=== PATIENT | male | born 1940 | race Caucasian/White ===

== ENCOUNTER 2018-08-02 15:38 | Observation (INO) | payer OTHER, BC ==
[2018-08-02] MEDS ORDERED: NS 500 ML IV ONE (15:46)
--- NOTE | 2018-08-02 15:49 | EDPHY ---
H & P Time Seen by Provider: 08/02/18 15:40 HPI/ROS: CHIEF COMPLAINT: Syncope and fainting HISTORY OF PRESENT ILLNESS: History of hypertension, he has had an intermittent what he calls "left rib pain" on the left side of his chest over the last week since Saturday. Today was at [facility] and after his 2nd beer suddenly felt warm and lightheaded and passed out, he was standing at the time. He did not injure himself. Family got him back up and he almost fainted again was brought in by EMS. Of note his blood pressure was low in transport with a lowest reading manual of 50 systolic with a heart rate in the 60s. On arrival the patient says he feels back to normal. He denies chest pain or shortness of breath now. Denies vomiting or diarrhea or headache. 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 PAST MEDICAL HISTORY: Hypertension Social [place] [facility] [place] Appearance: Alert and conversant, cooperative. Eyes:left eye abnormal which is baseline ENT, Mouth: Normal mucous membranes. Respiratory: Normal respiratory effort, breath sounds equal, lungs are clear to auscultation. Cardiovascular: Regular rate and rhythm. No murmur. Gastrointestinal: Abdomen is soft and non tender. Neurological: Alert, face symmetric, normal motor and sensory in extremities. Skin: Warm and dry, no rashes. Musculoskeletal: No peripheral edema. No calf tenderness. Psychiatric: Not agitated. Emergency Department course/MDM: 78-year-old man presents with syncope and pre-hospital blood pressure of 50 systolic. Plan for EKG and troponin, D-dimer, IV fluids, admission for monitoring and evaluation. 1609: BUN and creatinine elevated, will hydrate with IV normal saline in the ED. Possible component of dehydration. Discussed with madison at 4:30 p.m.. Constitutional: Initial Vital Signs Temperature (C) 36.6 C 08/02/18 15:39 Heart Rate 78 08/02/18 15:39 Respiratory Rate 16 08/02/18 15:39 Blood Pressure 130/61 H 08/02/18 15:39 O2 Sat (%) 97 08/02/18 15:39 O2 Delivery Mode Room Air Allergies/Adverse Reactions: No Known Allergies Allergy (Unverified 08/02/18 15:41) Home Medications: Medication Instructions Recorded Losartan/Hctz 50/12.5 [Hyzaar 1 tab PO DAILY 08/02/18 50/12.5MG (*)] Medical Decision Making - Diagnostics EKG Interpretation: 12-lead EKG interpreted by me; official reading is in computer system. My interpretation is sinus rhythm rate 72 with borderline prolonged QT otherwise normal. Imaging Results: Imaging Impressions Chest X-Ray 08/02/18 15:47 Impression: 1. Clear lungs. No acute process. 2. Minimal cardiomegaly. No failure. Imaging: I viewed and interpreted images myself Differential Diagnosis: Differential diagnosis considered for syncope including but not limited to vasovagal syncope, arrhythmia, dehydration, and blood loss. Consult/Admit Bed Type: [place] 1700 - Data Points Laboratory Results: Laboratory Results 08/02/18 15:52 08/02/18 15:52 08/02/18 08/02/18 08/02/18 15:52 15:52 15:52 WBC 7.78 10^3/uL 10^3/uL (3.80-9.50) RBC 4.27 10^6/uL L 10^6/uL (4.40-6.38) Hgb 14.1 g/dL g/dL (13.7-17.5) Hct 42.1 % % (40.0-51.0) MCV 98.6 fL fL (81.5-99.8) MCH 33.0 pg pg (27.9-34.1) MCHC 33.5 g/dL g/dL (32.4-36.7) RDW 13.4 % % (11.5-15.2) Plt Count 208 10^3/uL 10^3/uL (150-400) MPV 9.0 fL fL (8.7-11.7) Neut % (Auto) 55.0 % % (39.3-74.2) Lymph % (Auto) 33.3 % % (15.0-45.0) [place] % (Auto) 9.4 % % (4.5-13.0) Eos % (Auto) 1.3 % % (0.6-7.6) Baso % (Auto) 0.5 % % (0.3-1.7) Nucleat RBC Rel Count 0.0 % % (0.0-0.2) Absolute Neuts (auto) 4.28 10^3/uL 10^3/uL (1.70-6.50) Absolute Lymphs (auto) 2.59 10^3/uL 10^3/uL (1.00-3.00) Absolute Monos (auto) 0.73 10^3/uL 10^3/uL (0.30-0.80) Absolute Eos (auto) 0.10 10^3/uL 10^3/uL (0.03-0.40) Absolute Basos (auto) 0.04 10^3/uL 10^3/uL (0.02-0.10) Absolute Nucleated RBC 0.00 10^3/uL 10^3/uL (0-0.01) Immature Gran % 0.5 % % (0.0-1.1) Immature Gran # 0.04 10^3/uL 10^3/uL (0.00-0.10) D-Dimer 0.50 ug/mLFEU ug/mLFEU (0.00-0.50) Sodium 140 mEq/L mEq/L (135-145) Potassium 3.9 mEq/L mEq/L (3.5-5.2) Chloride 108 mEq/L mEq/L (97-110) Carbon Dioxide 18 mEq/l L mEq/l (22-31) Anion Gap 14 mEq/L mEq/L (6-14) BUN 33 mg/dL H mg/dL (7-23) Creatinine 1.5 mg/dL H mg/dL (0.7-1.3) Estimated GFR 45 Glucose 105 mg/dL H mg/dL (70-100) Calcium 8.9 mg/dL mg/dL (8.5-10.4) POC Troponin I 08/02/18 15:51 WBC RBC Hgb Hct MCV MCH MCHC RDW Plt Count MPV Neut % (Auto) Lymph % (Auto) [place] % (Auto) Eos % (Auto) Baso % (Auto) Nucleat RBC Rel Count Absolute Neuts (auto) Absolute Lymphs (auto) Absolute Monos (auto) Absolute Eos (auto) Absolute Basos (auto) Absolute Nucleated RBC Immature Gran % Immature Gran # D-Dimer Sodium Potassium Chloride Carbon Dioxide Anion Gap BUN Creatinine Estimated GFR Glucose Calcium POC Troponin I 0.00 ng/mL ng/mL (0.00-0.08) Medications Given: Discontinued Medications Sodium Chloride (Ns) 500 mls @ 0 mls/hr IV EDNOW ONE; Wide Open PRN Reason: Protocol Stop: 08/02/18 15:47 Last Admin: 08/02/18 15:56 Dose: 500 mls Sodium Chloride (Ns) 1,000 mls @ 0 mls/hr IV EDNOW ONE; Wide Open PRN Reason: Protocol Stop: 08/02/18 16:09 Last Admin: 08/02/18 16:50 Dose: 500 mls Point of Care Test Results: Chemistry 08/02/18 15:51 POC Troponin I 0.00 ng/mL ng/mL (0.00-0.08) Departure - Departure Disposition: [facility] Inpatient Acute Clinical Impression: Syncope Qualifiers: Syncope type: unspecified Qualified Code(s): R55 - Syncope and collapse Chest pain Qualifiers: Chest pain type: unspecified Qualified Code(s): R07.9 - Chest pain, unspecified Condition: Good Referrals: Patient,NotPresent [Unknown] - As per Instructions
--- NOTE | 2018-08-02 15:51 | CPEKG ---
Test Reason : OPEN Blood Pressure : / mmHG Vent. Rate : 072 BPM Atrial Rate : 072 BPM P-R Int : 203 ms QRS Dur : 113 ms QT Int : 440 ms P-R-T Axes : 059 004 045 degrees QTc Int : 482 ms Sinus rhythm Borderline prolonged QT interval Confirmed by Ceasar Schultz ([id number]) on 08/02/2018 3:50:15 PM Referred By: CEASAR SCHULTZ Confirmed By:Ceasar Schultz
[2018-08-02 15:57] LABS: PLATELET COUNT 208 10^3/uL (150-400)
[2018-08-02] MEDS ORDERED: NS 1,000 ML IV ONE (16:08)
[2018-08-02] MEDS ORDERED: ONDANSETRON DISINTEGRATING 4 MG TAB PO PRN (18:28)
[2018-08-02] MEDS ORDERED: ONDANSETRON 4 MG/2 ML VIAL IVP PRN (18:28)
[2018-08-02] MEDS ORDERED: ACETAMINOPHEN 325 MG TAB PO PRN (18:28)
[2018-08-02] MEDS ORDERED: NS W/ 20 KCl/L 1,000 ML IV SCH (18:30)
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
[2018-08-03 11:15] VITALS: BP 148/73
[2018-08-03] MEDS ORDERED: LOSARTAN/HCTZ 50/12.5 1 TAB PO SCH (11:15)
--- NOTE | 2018-08-03 12:23 | ASMTDCNOTE ---
Case Management Discharge Discharge Order Complete? Answers: Yes Patient to Obtain Answers: via Family Medications Transportation Arranged Answers: Family/Friends Family Notified Answers: Yes Discharge Comments Notes: CM met with pt and family to discuss discharge plans as pt is being discharged independently and will follow-up in the outpatient. Pt cleared by PT/OT. Pt's family is able to help pt with transportation and to obtain meds. Pt reports he is appreciative of care and is happy to go home. CM explained VILLEGAS to pt, unable to sign but provided verbal understanding, copy in chart. No other CM needs identified. Date Signed: 08/03/2018 11:55 AM Electronically Signed By:SELVIN Fonseca
--- NOTE | 2018-08-03 12:26 | ASDISCHSUM ---
Discharge Information Plan Status:Home with No Needs Medically Cleared to Leave:08/03/2018 Discharge Date:08/03/2018 12:25 PM CM D/C Disposition:Home, Routine, Self-Care ADT D/C Disposition: Projected Discharge Date:08/03/2018 12:25 PM Transportation at D/C:Family Discharge Delay Reason: Follow-Up Date:08/03/2018 12:25 PM Discharge Slot: Final Diagnosis: Placement Information Patient Contact Information Contact Name:CARLY Relationship:Razia Address: Work Phone: City: [place] Phone: State/Involver Code: Email: Financial Information Financial Class:Medicare Primary Plan Desc:MEDICARE OUTPATIENT Primary Plan Number:[id number] Secondary Plan Desc:[facility]ularu [facility] Secondary Plan Number:[id number] Assessment Information Case Management Discharge Plan Note Case Management Discharge Discharge Order Complete? Answers: Yes Patient to Obtain Answers: via Family Medications Transportation Arranged Answers: Family/Friends Family Notified Answers: Yes Discharge Comments Notes: CM met with pt and family to discuss discharge plans as pt is being discharged independently and will follow-up in the outpatient. Pt cleared by PT/OT. Pt's family is able to help pt with transportation and to obtain meds. Pt reports he is appreciative of care and is happy to go home. CM explained V[place]LEGAS to pt, unable to sign but provided verbal understanding, copy in chart. No other CM needs identified. Date Signed: 08/03/2018 11:55 AM Electronically Signed By:SELVIN Fonseca Intervention Information Intervention Type:*BAKARI-Signed Date of Service:08/03/2018 12:25 PM Patient Type:Observation Staff Member:SELVIN [place] Ema Hours: Discipline: Severity: Comment:
--- NOTE | 2018-08-03 14:26 | PDDCSUM ---
Discharge Summary Discharge Summary: Date of Admission and Discharge: 08/02/2018 Consults: N/A Followup:PCP Hospital Course Problem List: Syncope - likely secondary to orthostasis in setting of volume depletion. D dimer neg. -s/p IVF's overnight for hydration -monitored on telemetry overnight with no acute abnormalities -Trop negative -Given negative w/u as above, discussed with patient and family who preferred to defer TTE and will f/u with PCP to have it performed as an outpatient MARYBEL - likely pre-renal, lytes ok -NS overnight, recheck Cr this AM 1.2 Hypertension - Restarted home BP med upon discharge Blindness Tie spent on discharge was >35 minutes with >50% of time spent on patient education and counseling.
== END 2018-08-03 12:25 | disposition home or self-care (01) ==
LOC: EDUNIT# → F2W 17:35
PROVIDERS: ADMIT Hospitalist; ATTEND Hospitalist
DX: R55 Syncope and collapse (principal); N17.9 Acute kidney failure, unspecified; I10 Essential (primary) hypertension; H54.8 Legal blindness, as defined in USA; R07.9 Chest pain, unspecified; E86.9 Volume depletion, unspecified
CPT/HCPCS: 70450; 71046; 93005; 96360; 99285; G0378; 84484-ER